=== PATIENT | male | born 1965 | race Two or more races ===

== ENCOUNTER 2024-03-30 17:26 | Emergency (ER) | payer OTHER ==
[~2024-03-30] VITALS: Ht 177.8 cm; Wt 97.5 kg
[2024-03-30] MEDS ORDERED: ZESTRIL2.5 MG (17:34)
[2024-03-30] MEDS ORDERED: EZALLOR SPRINKLE5 MG (17:35)
[2024-03-30] MEDS ORDERED: BUTALB/ACETAMINOPHEN/CAFFEINE 1 TAB TABLET PO ONE ×2 (17:45→18:08)
[2024-03-30 18:45] LABS: HEMATOCRIT 47.2 % (39.0-48.0); HEMOGLOBIN 16.7 g/dL (13-16.00); MEAN CELL VOLUME 87.2 fL (80.0-100.00); MEAN CORPUSCULAR HEMOGLOBIN 30.8 pg (27.00-32.0); MEAN CORPUSCULAR HGB CONC 35.4 g/dl (32.0-36.0); PLATELET COUNT 129 K/uL (150-450); RED BLOOD COUNT 5.41 M/uL (4.00-6.00); RED CELL DISTRIBUTION WIDTH 13.8 % (11.5-14.5)
[2024-03-30 19:31] LABS: ALBUMIN 3.9 gm/dL (3.4-5.0); BILIRUBIN TOTAL 0.88 mg/dL (0.3-1.2); CREATININE SERUM 1.04 mg/dL (0.70-1.30); GFR 73.35; GLOBULINA 2.9 G/DL (2.4-3.5); POTASSIUM 4.57 mEq/L (3.5-5.1); TOTAL PROTEIN 6.8 gm/dL (6.4-8.2)
[2024-03-30] MEDS ORDERED: LABETALOL HCL 100 MG/20 ML ML ONE (20:04)
[2024-03-30] MEDS ORDERED: LABETALOL HCL 20MG/4ML SYRINGE IV STA (20:05)
[2024-03-30] MEDS ORDERED: LABETALOL HCL 20MG/4ML SYRINGE IV ONE (20:15)
== END 2024-03-31 01:02 | disposition home or self-care (01) ==
LOC: ER 17:26
PROVIDERS: Emergency Medicine
DX: I10 Essential (primary) hypertension (principal); Z20.822 Contact with and (suspected) exposure to COVID-19